=== PATIENT | male | born 1975 | race Caucasian/White ===

== ENCOUNTER 2018-12-12 12:32 | Emergency (ER) | payer SELFPAY ==
[2018-12-12 12:50] VITALS: BP 143/86
--- NOTE | 2018-12-12 12:59 | UC ---
Hand/Wrist HPI - HPI Summary HPI Summary: 43 yo male presents with RIGHT arm injury. He is right hand dominant. 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 Had immediate pain in his right forearm. 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 Came directly to . Nothing OTC for discomfort. Denies numbness or tingling. - History Of Current Complaint Chief Complaint: UCUpperExtremity Stated Complaint: RIGHT ARM INJURY Time Seen by Provider: 12/12/18 12:58 Hx Obtained From: Patient Onset/Duration: Sudden Onset Severity Initially: Moderate Severity Currently: Moderate Pain Intensity: 6 Pain Scale Used: 0-10 Numeric - Allergies/Home Medications Allergies/Adverse Reactions: Allergies Allergy/AdvReac Type Severity Reaction Status Date / Time No Known Allergies Allergy Verified 12/12/18 12:48 Home Medications: Home Medications Lisinopril TAB* [Prinivil TAB*] 10 mg PO DAILY 12/12/18 [History Confirmed 12/12] PMH/Surg Hx/FS Hx/Imm Hx Cardiovascular History: Hypertension - Surgical History Surgical History: Yes Surgery Procedure, Year, and Place: hernia. collapsed lung. choyl scheduled for 01/15/19 - Family History Known Family History: Positive: Non-Contributory - Social History Occupation: Employed Full-time Lives: With Family Alcohol Use: None Substance Use Type: None Smoking Status (MU): Heavy Every Day Tobacco Smoker Type: Cigarettes Amount Used/How Often: 1 PPD Review of Systems All Other Systems Reviewed And Are Negative: No Constitutional: Positive: Negative Skin: Positive: Negative Respiratory: Positive: Negative Cardiovascular: Positive: Negative Neurovascular: Positive: Negative Musculoskeletal: Positive: Other: - Right forearm pain Neurological: Positive: Negative Psychological: Positive: Negative Physical Exam - Summary Physical Exam Summary: GENERAL: NAD. WDWN. No pain distress. SKIN: No rashes, sores, lesions, or open wounds. CHEST: No accessory muscle use. Breathing comfortably and in no distress. CV: Pulses intact radial and ulnar. Cap refill <2seconds MSK: RIGHT WRIST: FROM, NTTP. Pain in dorsal forearm with flexion of wrist. Clinical Study Manager strength decreased. No edema or obvious bony deformities. No snuffbox tenderness. RIGHT FOREARM: Mild TTP about mid dorsal radial forearm overlying brachioradialis NEURO: Alert. Sensations intact hand and all fingers. PSYCH: Age appropriate behavior. Triage Information Reviewed: Yes Vital Signs: Initial Vital Signs Temp 99.7 F 12/12/18 12:45 Pulse 87 12/12/18 12:45 Resp 15 12/12/18 12:45 BP 143/86 12/12/18 12:45 Pulse Ox 96 12/12/18 12:45 Vital Signs Reviewed: Yes Diagnostics - Radiology FOREARM and WRIST XR Radiology Interpretation Completed By: Radiologist Summary of Radiographic Findings: IMPRESSION: NO ACUTE OSSEOUS INJURY. IF SYMPTOMS PERSIST, RECOMMEND REPEAT IMAGING. Hand/Wrist Course/Dx - Course Course Of Treatment: XRs as above. Suspect muscle strain/sprain. Pt was placed in a cock-up wrist splint and advised to RICE and f/u with Orthopedics if symptoms do not improve within 1 week. - Differential Dx/Diagnosis Provider Diagnosis: Arm sprain Discharge ED - Sign-Out/Discharge Documenting (check all that apply): Patient Departure All imaging exams completed and their final reports reviewed: Yes - Discharge Plan Condition: Stable Disposition: HOME Patient Education Materials: Wrist Sprain (ED) Referrals: No Primary Care Phys,NOPCP [Primary Care Provider] - Kehinde Duncan MD [Medical Doctor] - If Needed Additional Instructions: If you develop a fever, shortness of breath, chest pain, new or worsening symptoms - please call your PCP or go to the ED immediately. Your blood pressure was high at todays visit. Please see your primary provider within 4 weeks for recheck and re-evaluation. Your X-Ray today was normal 1) Rest, Ice, and elevate your arm intermittently throughout the day to reduce pain 2) Use the arm/wrist brace as needed for comfort 3) If your symptoms do not improve within 5-7 days, please call Orthopedics at the number below to schedule an appointment for a recheck - Billing Disposition and Condition Condition: STABLE Disposition: Home
== END 2018-12-12 13:30 | disposition home or self-care (01) ==
LOC: UCCORT 12:32
DX: S63.91XA Sprain of unspecified part of right wrist and hand, initial encounter (principal); I10 Essential (primary) hypertension; F17.210 Nicotine dependence, cigarettes, uncomplicated; Z79.899 Other long term (current) drug therapy; W11.XXXA Fall on and from ladder, initial encounter; Y92.9 Unspecified place or not applicable
CPT/HCPCS: 99202; G0463